=== PATIENT | female | born 1980 | race Caucasian/White ===

== ENCOUNTER 2025-04-07 06:01 | Emergency (ER) | payer BC, SELFPAY ==
[2025-04-07 06:02] VITALS: BMI 30.1
[2025-04-07 06:06] VITALS: BP 149/94; PULSE 56; RESP 18; TEMP 36.4; O2SAT 100
--- NOTE | 2025-04-07 06:14 | EKG_ITS ---
[facility] Test Date: 2025-04-07 Pat Name: SHEELA HEALY Department: Room: - Gender: Female Lunch Counter Manager: : 1980 Requested By: Miranda Montero Order Number: [id number] Reading MD: Miranda Montero Measurements Intervals Dexter Rate: 54 P: 47 AR: 169 QRS: 50 QRSD: 89 T: 52 QT: 482 QTc: 459 Interpretive Statements SINUS BRADYCARDIA No previous ECG available for comparison /store/S0/[id number].pdf
--- NOTE | 2025-04-07 06:15 | EDNOTE_ITS ---
ED Abdominal Pain RME/HPI General Chief Complaint: Abdominal Pain Stated complaint: UPPER ABD PAIN Time seen by provider: 04/07/25 06:09 Arrival date/time: 04/07/25 06:01 RME / HPI RME / HPI narrative: DR. CHATTERJEE MAIN ED EVALUATION: 44-year-old female with a history of kidney stones and prior section presents to the Emergency Department with severe epigastric pain. She reports waking up at 2 AM with vomiting, briefly went back to sleep, then awoke again around 4:30 AM with worsening epigastric pain accompanied by nausea and recurrent vomiting. Patient appears visibly uncomfortable and is moaning in pain. Related Data Home Medications ?Medication ?Instructions ?Recorded ?Confirmed escitalopram oxalate [Lexapro] PO 12/28/19 12/28/19 Allergies Allergy/AdvReac Type Severity Reaction Status Date / Time latex Allergy Verified 04/07/25 06:07 Review of Systems Review of Systems Systems Reviewed: All systems reviewed, normal except as documented Past Medical History Past Medical History GENITOURINARY: Positive Kidney Stones Surgical History SURGICAL: Positive Section Social History SMOKING STATUS: Current every day smoker ED Exam Narrative Physical exam: GENERAL APPEARANCE: alert and oriented x 4, well-developed, well-nourished; patient appears visibly uncomfortable and is moaning in pain. VITALS: All vitals were reviewed and the pulse ox is 100% on room air, which is normal according to my interpretation. HEENT: Normocephalic, atraumatic; pupils equal, round, reactive to light; EOMI; mucous membranes pink, moist; oropharynx clear NECK: Supple LUNGS: CTABL; no wheezes, no rales, no rhonchi HEART: Regular rate, regular rhythm; normal S1, S2; no murmurs ABDOMEN: non distended; normal BS; soft, no tenderness, no guarding, no rebound; no masses, no organomegaly, no hernia BACK: no CVA tenderness EXTREMITIES: atraumatic; no edema NEUROLOGIC: awake; alert and oriented x4; cranial nerves II-XII grossly intact; no focal sensory or motor deficits PSYCHIATRIC: appropriate mood and affect SKIN: warm, dry, normal color; no rashes Course Quality Measures none Orders Category Date Time Status CT Screening NOW Care 04/07/25 06:20 Completed Cake Batter Mixer NOW Care 08/16/25 06:14 Completed EKG (ED ONLY) *Do not use* NOW Care 04/07/25 06:14 Completed Insert IV NOW Care 04/07/25 06:[address] abdomen pelvis w con Stat Exams 04/07/25 06:20 Completed EKG (ED Only) Stat Exams 04/07/25 06:14 Draft US abdomen limited Stat Exams 04/07/25 09:44 Completed XR chest 1V portable Stat Exams 04/07/25 06:14 Completed Alcohol, Blood Medical Stat Lab 04/07/25 06:25 Completed B-Type Natriuretic Peptide Stat Lab 04/07/25 06:25 Completed CBC Stat Lab 04/07/25 06:25 Completed Comprehensive Metabolic Panel Stat Lab 04/07/25 06:25 Completed Drug Screen,Urine Stat Lab 04/07/25 07:01 Completed HCG Qualitative,Urine Stat Lab 04/07/25 07:01 Completed Lactate (Lactic Acid) Stat Lab 04/07/25 06:25 Completed Lactic Acid, 3 HR Stat Lab 04/07/25 09:46 Completed Lipase Stat Lab 04/07/25 06:25 Completed Magnesium Stat Lab 04/07/25 06:25 Completed Partial Thromboplastin Time Stat Lab 04/07/25 06:25 Completed Prothrombin Time with INR Stat Lab 04/07/25 06:25 Completed Troponin I Stat Lab 04/07/25 06:25 Completed UA, C/S IF [Urinalysis, C/S if Indicated] Stat Lab 04/07/25 07:01 Completed Magnesium Sulfate 2 GM Ivpb [Magnesium Sulfate Ivpb] Med 04/07/25 07:24 Discontinued 2 gm in 50 ml IV X1 Morphine Inj Med 04/07/25 06:13 Discontinued 5 mg IVP X1 ONE Morphine Inj Med 04/07/25 07:29 Discontinued 5 mg IVP X1 ONE Ondansetron Inj [Zofran Inj] Med 04/07/25 06:13 Discontinued 4 mg IVP X1 ONE Sodium Chloride 0.9% 1000 ml [Ns] 1,000 ml Med 04/07/25 06:18 Discontinued IV 999 mls/hr Reevaluation(s) Reevaluation #1: Patient doing better and would like to go home. Patient remains clinically stable throughout the emergency department visit. Re-assessment at the time of disposition demonstrates that the patient is in no acute distress. We reviewed all the results, analysis, and treatment plans. Patient is amenable to discharge. Strict return precautions were outlined. Patient was discharged in stable condition. Time: 11:35 Vital Signs Vital signs: Vital Signs Temperature 97.6 F 04/07/25 06:06 Pulse Rate 56 L 04/07/25 06:06 Respiratory Rate 18 04/07/25 06:06 Blood Pressure 149/94 H 04/07/25 06:06 Pulse Oximetry (%) 100 04/07/25 06:06 Oxygen Delivery Method Room Air 04/07/25 06:06 Abdominal Pain MDM MDM Narrative MDM Narrative:: I, Jasmine Dobson am scribing for and in the presence of Dr. Chatterjee. Patient data External records reviewed:: [facility] previous records Clinical information provided by:: patient Social determinants that could affect healthcare access:: none Patient has the following chronic illnesses:: kidney stones and prior section How is presenting disease/condition affected by chronic disease/condition?: exacerbated by Evaluation data The following diagnostics were reviewed and interpreted by me:: lab results, radiology exam(s) and EKG tracing(s) (My interpretation: EKG performed at 0648 hours, sinus bradycardia, rate 54, no acute ischemic changes) Lab and/or radiology exams considered but not ordered:: none Interpretation Summary: Procedure(s): XR chest 1V portable Accession Number(s): [id number] cc: Eliceo Jang MD; Miranda Chatterjee MD; Brooklynn Valderrama MD~ Examination: AP chest single view Technique one AP portable upright chest single view Date and time: April 07, 2025 0830 hrs. Indications: Chest pain shortness of breath today. Findings: Minimal prominence left ventricle. No pneumonia or pulmonary edema. The osseous structures are intact. Impression: No active disease. Dictated By: Eliceo Jang MD Procedure(s): CT abdomen pelvis w con Accession Number(s): [id number] cc: Eliceo Jang MD; Miranda Chatterjee MD; Brooklynn Valderrama MD~ Examination: CT abdomen with intravenous contrast CT pelvis with intravenous contrast 2-D coronal reconstructions 2-D sagittal reconstructions Date and time of exam:April 07, 2025, 0817 hrs. Indications: Epigastric pain beginning last night.. CTDI: vol (mGy) 10.8. DLP: (mGycm) 561. Technique: Multiple axial sections of the abdomen and pelvis have been obtained. 64 slice high-resolution scanner used. 3 mm axial sections have been obtained, post intravenous injection 60 cc Isovue-370. 2-D sagittal, coronal reconstructions obtained. Low dose protocols were performed. One or more of the following dose reduction techniques were used; automated exposure control, adjustment of the mA and/or KV according to patient size, use of iterative reconstruction technique. Findings: Gastric mucosa appears thickened. Gallstones. Gallbladder wall appears thickened and edematous. No hydronephrosis or ureteral calculi. Aorta normal size. No bowel obstruction. No pericecal inflammatory change. Urinary bladder intact. Impression: Recommend gallbladder sonography follow-up to confirm acute cholecystitis Dictated By: Eliceo Jang MD Procedure(s): US abdomen limited Accession Number(s): [id number] cc: Eliceo Jang MD; Miranda Chatterjee MD; Brooklynn Valderrama MD~ Examination: Abdomen sonogram, Limited Date and time of exam: April 07, 2025, 10:37 AM Indications: Epigastric pain today Technique: Real-time olivier scale transabdominal sonographic images of the upper abdomen obtained. Findings: Distended gallbladder Gallstones Gallbladder wall 0.3 cm no edema Common bile duct 0.4 cm Pancreatic head 2.4 cm Liver 14.4 cm smooth contour no focal liver lesions Normal hepatopedal portal venous flow Patent IVC Impression: Cholelithiasis, negative for cholecystitis Dictated By: Eliceo Jang MD Medications / Prescriptions Medications or Prescriptions considered but not ordered:: none Medication administrations:: Medication Administration History Discontinued Medications Sodium Chloride (Ns) 1,000 mls @ 999 mls/hr IV .Q1H1M ONE Stop: 04/07/25 07:18 Last Infusion: 04/07/25 07:30 Dose: Infused Documented By: Admin: 04/07/25 06:24 Dose: 999 mls/hr Documented By: CHRISTINA Magnesium Sulfate (Magnesium Sulfate Ivpb) 2 gm in 50 mls @ 25 mls/hr IV X1 ONE Stop: 04/07/25 09:23 Last Infusion: 04/07/25 11:00 Dose: Infused Documented By: Admin: 04/07/25 07:45 Dose: 25 mls/hr Documented By: LETICIA Morphine Sulfate (Morphine Sulf Inj 10 Mg/Ml Vial) 5 mg IVP X1 ONE Stop: 04/07/25 06:14 Last Admin: 04/07/25 06:22 Dose: 5 mg Documented By: CHRISTINA Morphine Sulfate (Morphine Sulf Inj 10 Mg/Ml Vial) 5 mg IVP X1 ONE Stop: 04/07/25 07:30 Last Admin: 04/07/25 07:41 Dose: 5 mg Documented By: LETICIA Ondansetron HCl (Ondansetron Inj 2 Mg/Ml Inj 2 Ml) 4 mg IVP X1 ONE Stop: 04/07/25 06:14 Last Admin: 04/07/25 06:22 Dose: 4 mg Documented By: BD see above Consultations Consultation(s) initiated? (list below): No Diagnosis Differential diagnosis abdominal pain: abdominal pain, pancreatitis and other (acute gastritis and biliary colic) Most likely diagnosis given after review of the tests above:: Abdominal pain Cholelithiasis Biliary colic Admission Indicated Admission indicated?: not indicated Admission Request Was there a request for admission?: No Disposition Plan Disposition Plan: Discharge Discharge Attestation Discharge Attestation: The patient and all family members were given an opportunity to ask questions and understood the discharge instructions. Discharge instructions specifically effects, indications for sooner follow up or return to the emergency department, and the expected course of current diagnosis. Patient condition: Stable Discharge Plan Plan Patient Disposition: HOME (Self Care) Prescriptions/Referrals Prescriptions/Med Rec: No Action escitalopram oxalate [Lexapro] PO Referrals: Brooklynn Valderrama MD [Primary Care Provider] - In 1 week Problem List Clinical Impression: Abdominal pain, Cholelithiasis, Biliary colic Patient/Caregiver Discharge Instructions Education Materials: ED Gallstones with Biliary Colic Print Language: [place] Stand Alone Forms: Jennifer Award Info., Patient Portal Info Letter
--- NOTE | 2025-04-07 06:20 | XR_ITS ---
Examination: CT abdomen with intravenous contrast CT pelvis with intravenous contrast 2-D coronal reconstructions 2-D sagittal reconstructions Date and time of exam:April 07, 2025, 0817 hrs. Indications: Epigastric pain beginning last night.. CTDI: vol (mGy) 10.8. DLP: (mGycm) 561. Technique: Multiple axial sections of the abdomen and pelvis have been obtained. 64 slice high-resolution scanner used. 3 mm axial sections have been obtained, post intravenous injection 60 cc Isovue-370. 2-D sagittal, coronal reconstructions obtained. Low dose protocols were performed. One or more of the following dose reduction techniques were used; automated exposure control, adjustment of the mA and/or KV according to patient size, use of iterative reconstruction technique. Findings: Gastric mucosa appears thickened. Gallstones. Gallbladder wall appears thickened and edematous. No hydronephrosis or ureteral calculi. Aorta normal size. No bowel obstruction. No pericecal inflammatory change. Urinary bladder intact. Impression: Recommend gallbladder sonography follow-up to confirm acute cholecystitis
[2025-04-07] MEDS: ONDANSETRON INJ 2 MG/ML INJ 2 ML 4 MG IVP (06:22)
[2025-04-07] MEDS: MORPHINE SULF INJ 10 MG/ML VIAL 5 MG IVP ×2 (06:22→07:41)
[2025-04-07] MEDS: SODIUM CHLORIDE 0.9% 1000 ML 1,000 ML 999 ML IV (06:24)
[2025-04-07 06:32] LABS: Lactate (Lactic Acid) 2.5 mMol/L (0.4-2.0)
[2025-04-07 06:59] LABS: Basophils # (Auto) 0.1 Thou/mm3 (0.0-0.2); Basophils % (Auto) 1 % (0-2.5); Eosinophils # (Auto) 0.3 Thou/mm3 (0.0-0.5); Eosinophils % (Auto) 3 % (0-10); Hematocrit 42.4 % (36.0-46.0); Hemoglobin 14.7 g/dL (12.0-16.0); Immature Granulocytes Auto 0.03 Thou/mm3 (0.00-0.00); Lymphocytes # (Auto) 2.2 Thou/mm3 (1.0-4.8); Lymphocytes % (Auto) 19 % (10-50); Mean Corpuscular HGB Conc 34.7 g/dl (31.0-37.0); Mean Corpuscular Hemoglobin 31.1 pg (25.0-35.0); Mean Corpuscular Volume 90 fL (80-100); Monocytes # (Auto) 0.5 Thou/mm3 (0.0-0.8); Monocytes % (Auto) 4 % (0-12); Neutrophils # (Auto) 8.3 Thou/mm3 (1.8-7.7); Neutrophils % (Auto) 73 % (37-80); Nucleated Red Blood Cell # 0.00 Thou/mm3 (0.00-0.00); Nucleated Red Blood Cell % 0 /100 WBC (0); Platelet Count 292 Thou/mm3 (140-440); RDW Standard Deviation 44.0 fL (36.4-46.3); Red Blood Count 4.73 Miln/mm3 (4.00-5.20); White Blood Count 11.4 Thou/mm3 (3.6-11.0)
[2025-04-07 07:06] LABS: INR 1.0 (0.9-1.3); Partial Thromboplastin Time 25.5 Seconds (22.0-36.0); Prothrombin Time 10.8 Seconds (9.0-12.2)
[2025-04-07 07:11] LABS: Collection Type, Urine Clean Catch; WBC,Urine 0 /hpf (0-5)
[2025-04-07 07:20] LABS: Alanine Aminotransferase 9 U/L (10-49); Albumin, Serum 4.2 gm/dL (3.5-5.0); Albumin/Globulin Ratio 1.9 (1.2-2.2); Alcohol, Blood Medical < 10.0 mg/dL (0-10.0); Alkaline Phosphatase 70 U/L (46-116); Anion Gap 11 (7-16); Aspartate Amino Transferase 13 U/L (0-34); BUN/Creatinine Ratio 17 Ratio (12-20); Bilirubin,Total 0.3 mg/dL (0.3-1.2); Blood Urea Nitrogen 12 mg/dL (9-23); Calcium 10.0 mg/dL (8.3-10.6); Calcium (Corrected) 10.0 mg/dL (8.5-10.1); Carbon Dioxide 24.4 mMol/L (20.0-31.0); Chloride 105 mMol/L (98-107); Creatinine (Component) 0.7 mg/dL (0.6-1.3); Estimated Creatinine Clearance 99.8 mL/min (>60); Globulin 2.2 gm/dL (2.3-3.5); Glucose 112 mg/dL (74-106); Lipase 35 U/L (12-53); Magnesium 1.4 mg/dL (1.6-2.6); Osmolality,Calculated 280 (275-295); Potassium 4.2 mMol/L (3.4-5.1); Sodium 140 mMol/L (136-145); Total Protein 6.4 gm/dL (5.7-8.2); Troponin I < 0.002 ng/mL (0.0-0.045); eGFR > 60 See Note
[2025-04-07 07:21] LABS: B-Type Natriuretic Peptide 96 pg/mL (0-100)
[2025-04-07 07:37] LABS: Amorphous Crystals,Urine Present (Absent); Bilirubin,Urine Negative (Negative); Blood,Urine Negative (Negative); Color,Urine Yellow (Lt Yel-Yel); Culture Indicated,Urine Not Indicated; Glucose, Urine Negative (Negative); HCG Qualitative,Urine Negative; Ketones,Urine Negative (Negative); Leukocyte Esterase,Urine Negative (Negative); Nitrite,Urine Negative (Negative); PH,Urine 8.5 (5.0-7.0); Protein,Urine 1+ (Neg - Trace); RBC,Urine 3 /hpf (0-3); Specific Gravity,Urine 1.021 (1.001-1.035); Squamous Epithelial Cell,Urine 10 /hpf (0-5); Urobilinogen,Urine Negative mg/dL (0.0-1.0)
[2025-04-07] MEDS: Magnesium Sulfate 2 GM Ivpb 2 GM/50 ML BAG IV (07:45)
[2025-04-07 07:49] LABS: Amphetamine/Methamp Scrn,U Negative (Negative); Barbiturate Screen,Urine Negative (Negative); Benzodiazepines Screen,Urine Negative (Negative); Benzoylecgonine Screen, Ur Negative (Negative); Fentanyl Screen,Urine Negative (Negative); Opiate Screen,Urine Positive (Negative); THC Screen,Urine Positive (Negative)
[2025-04-07 08:00] VITALS: PULSE 54
[2025-04-07 08:01] VITALS: BP 144/102; PULSE 52; RESP 16; TEMP 36.4; O2SAT 95
[2025-04-07 08:10] LABS: Clarity,Urine Hazy (Clear/Hazy)
[2025-04-07 09:30] LABS: Reflex Lactate? Y
--- NOTE | 2025-04-07 09:44 | XR_ITS ---
Examination: Abdomen sonogram, Limited Date and time of exam: April 07, 2025, 10:37 AM Indications: Epigastric pain today Technique: Real-time olivier scale transabdominal sonographic images of the upper abdomen obtained. Findings: Distended gallbladder Gallstones Gallbladder wall 0.3 cm no edema Common bile duct 0.4 cm Pancreatic head 2.4 cm Liver 14.4 cm smooth contour no focal liver lesions Normal hepatopedal portal venous flow Patent IVC Impression: Cholelithiasis, negative for cholecystitis
[2025-04-07 09:51] LABS: Lactic Acid, 3 HR 1.3 mMol/L (0.4-2.0)
[2025-04-07 09:55] VITALS: BP 117/71; PULSE 55; RESP 16; O2SAT 100
[2025-04-07 12:12] VITALS: BP 113/60; PULSE 61; RESP 16; O2SAT 98
== END 2025-04-07 12:14 | disposition home or self-care (01) ==
PROVIDERS: Emergency Provider Emergency Medicine; PCP Internal Medicine
DX: K80.50 Calculus of bile duct without cholangitis or cholecystitis without obstruction (principal)
CPT/HCPCS: 36415; 71045; 74177; 76705; 80053; 80307; 80320; 81001; 81025; 83605; 83690; 83735; 83880; 84484; 85025; 85610; 85730; 96361; 96365; 96366; 96375; 96376; 99284; A4649; J2270; J2405; J3475; J7030; Q9967; G0480